=== PATIENT | female | born 1980 | race Caucasian/White ===

== ENCOUNTER 2016-07-12 17:55 | Observation (INO) | payer OTHER ==
[2016-07-12] MEDS ORDERED: SODIUM CHLORIDE 0.9% FLUSH 10 ML ONE ×2 (18:06→18:24)
[2016-07-12] MEDS ORDERED: IV START KIT ONE (18:07)
[2016-07-12] MEDS ORDERED: BLOOD Y PLUMSET W/CASSETTE ONE (18:20)
[2016-07-12] MEDS ORDERED: SODIUM CHLORIDE 0.9% 500 ML ONE (18:20)
[2016-07-12] MEDS ORDERED: SODIUM CHLORIDE 0.9% 500 ML IV PRN ×2 (19:09→20:09)
[2016-07-12 19:34] LABS: ABSOLUTE NEUTROPHIL COUNT 3.5 K/mm3 (1.8-7.7); BASO # 0.1 K/mm3 (0.0-0.2); BASO % 0.6 % (0.2-1.0); EOS # 0.5 (0.0-0.5); EOS % 6.5 % (0.9-2.9); HEMATOCRIT 24.1 % (37.0-47.0); HEMOGLOBIN 7.6 gm/l (12.0-16.0); IMM NEUT% 0.3 % (0-1); LYMPH # 3.1 (1.0-4.8); LYMPH % 40.6 % (15-45); MEAN CELL VOLUME 103.9 fl (81.0-99.0); MEAN CORPUSCULAR HEMOGLOBIN 32.8 pg (27.0-31.0); MEAN CORPUSCULAR HGB CONC 31.5 g/dl (33.0-37.0); MEAN PLATELET VOLUME 8.4 fl (7.4-10.4); MONO # 0.5 (0.0-0.8); MONO % 6.1 % (4-12); NEUT % 45.9 % (43-75); PLATELET COUNT 350 K/mm3 (130-400); RED CELL DISTRIBUTION WIDTH 18.1 % (11.5-14.5)
[2016-07-12 19:57] LABS: ALB/GLOB RATIO 1.8 (>1.0); ALBUMIN 3.7 gm/dL (3.5-5.7); CALCIUM 8.9 mg/dL (8.6-10.3)
[2016-07-12] MEDS ORDERED: BISACODYL 5 MG TABLET.EC PO PRN (20:09)
[2016-07-12] MEDS ORDERED: SODIUM CHLORIDE 0.9% 100 ML IV PRN (20:09)
[2016-07-12] MEDS ORDERED: BLISTEX LIPSTICK 1 EACH TP PRN (20:09)
[2016-07-12] MEDS ORDERED: ACETAMINOPHEN 325 MG TABLET PO PRN (20:09)
[2016-07-12] MEDS ORDERED: MAGNESIUM HYDROXIDE 30 ML UDCUP PO PRN (20:09)
[2016-07-12] MEDS ORDERED: MENTHOL/CETYLPYRD 1 EACH LOZENGE PO PRN (20:09)
[2016-07-12] MEDS ORDERED: BISACODYL 10 MG SUP PR PRN (20:09)
[2016-07-12] MEDS ORDERED: ALBUTEROL SULFATE MDI 60 PUFFS/INHALER IH PRN (20:13)
[2016-07-12 20:15] LABS: PLATELET ESTIMATE NORMAL (NORMAL)
[2016-07-12] MEDS ORDERED: FOLIC ACID 1 MG TABLET PO ONE (20:23)
[2016-07-12] MEDS ORDERED: CYANOCOBALAMIN 1,000 MCG/ML VIAL IM ONE (20:23)
[2016-07-12] MEDS ORDERED: NICOTINE 14 MG PATCH 1 EACH TD SCH (20:30)
[2016-07-12 20:34] VITALS: BMI 23.9
[2016-07-12] MEDS: SODIUM CHLORIDE 0.9% 1,000 ML IV SCH (21:36)
[2016-07-12] MEDS: MEDROXYPROGESTERONE ACET 5 MG TABLET PO SCH (21:36)
[2016-07-12] MEDS: FERROUS SULFATE (65 Fe) 325 MG TABLET PO SCH (21:37)
[2016-07-12] MEDS: DOCUSATE SODIUM 100 MG CAPSULE PO SCH (21:37)
[2016-07-12] MEDS: FLU VACC 2016-17 (36MO-64Y)/PF 60 MCG/0.5 ML SYRINGE IM V ONE (22:15)
[2016-07-13] MEDS ORDERED: BLOOD Y PLUMSET W/CASSETTE ONE (01:09)
[2016-07-13] MEDS ORDERED: SODIUM CHLORIDE 0.9% 500 ML ONE (01:09)
--- NOTE | 2016-07-13 01:32 | HP ---
SANG HAYWARD [id number] IDENTIFYING DATA: A 35-year-old female. DATE OF : 1980 CHIEF COMPLAINT: Dizziness. HISTORY OF PRESENT ILLNESS: The patient is a 35-year-old female who developed vaginal bleeding following several positive tests. She was previously seen at [facility], without treatment. She has had vaginal bleeding for approximately the past 38 days, with blood clots and cramping. She has seen her primary care physician and gynecology regarding this. She goes through approximately 20-30 pads a day with this. Gynecology has seen her and they have tried medications to help reduce and stop the bleeding. The bleeding has been reduced, but it always returns. She believes she miscarried when the test went negative after the initiation of the bleeding. In April she had a tubal ligation reversal and has been trying to get . She presented to her family practice physician who noticed the low hemoglobin and sent her to the hospital for a transfusion. Currently she has increasing dizziness for the past four or five days and she has noticed shortness of breath with activity, and there is cramping with the vaginal bleeding. She does believe she has a D&C scheduled for 07/21/2016. REVIEW OF SYSTEMS: General - chills. HEENT - no throat pain or congestion. Cardiovascular - no chest pain or pressure. Respiratory - shortness of breath with activity. GI - no nausea or vomiting. She has abdominal cramping. - no difficulties with urination. Vaginal bleeding with clots. Musculoskeletal - no muscle aches or pains. Neurologic - she has dizziness and lightheadedness. No numbness or tingling. PAST MEDICAL HISTORY: Includes: 1. Asthma. 2. Nicotine use. MEDICATIONS: Include: 1. Iron. 2. Albuterol. 3. A new prescription for Provera, provided today. ALLERGIES: 1. Doxycycline; it causes anaphylactic shock. 2. Codeine gives her numbness. PAST SURGICAL HISTORY: Includes: 1. Tonsillectomy. 2. Carpal tunnel. 3. Caesarian section with tubal ligation following a tubal reversal. FAMILY MEDICAL HISTORY: Includes diabetes and heart disease. SOCIAL HISTORY: She is and lives with her . 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 She does smoke. She denies alcohol, marijuana, heroin or other cocaine use. PHYSICAL EXAMINATION: VITALS: T=98.2, HR 90, BP 91/56, RR 16, O2 Sats 100% RA GENERAL: She is alert and oriented, not in acute distress. HEENT: Normocephalic, atraumatic. No tenderness to palpation. Her mucous membranes are moist. Her pupils are equal, round and reactive. Extraocular muscles are intact. There is no scleral icterus, conjunctival injection or pallor. NECK: Supple. Trachea midline. CARDIOVASCULAR: Regular. Positive S1, S2. She has palpable pulses bilaterally radially and PT. RESPIRATORY: Clear to auscultation bilaterally. No rhonchi or wheezing. ABDOMEN: Soft and nontender. No distention, rebound or guarding. MUSCULOSKELETAL: Moving all extremities without difficulty and nontender. NEUROLOGIC: She is alert and oriented. LABORATORY STUDIES: She has a sodium of 139, potassium 2.7, chloride 106, carbon dioxide of 3, BUN of 6, creatinine of 0.7, ALT of 11 and AST of 6. White blood count 7.7, hemoglobin 7.6 and hematocrit 24.1, with a platelet count of 350 and an MCV of 103.9. ASSESSMENT/PLAN: This is a 35-year-old female with ongoing menometrorrhagia resulting in acute blood loss anemia, sent to the hospital for admission for a blood transfusion. 1. Acute blood loss anemia secondary to menometrorrhagia following miscarriage. The patient will need surgical intervention and she is working with gynecology. Will continue Provera. She is typed and crossed for two units and will monitor the blood transfusion. 2. Menometrorrhagia. Will continue her Provera. She is to follow-up with gynecology. 3. Asthma. Will continue her inhaler. A short discussion on tobacco cessation and the impact on her asthma. 4. Tobacco dependence. She will try a nicotine patch. cc: Dr. Miguel Cordero
[2016-07-13] MEDS: SODIUM CHLORIDE 0.9% 1,000 ML IV SCH (05:10)
[2016-07-13 05:50] LABS: HEMATOCRIT 30.1 % (37.0-47.0); HEMOGLOBIN 9.5 gm/l (12.0-16.0)
[2016-07-13 07:50] VITALS: BP 97/65
--- NOTE | 2016-07-13 08:59 | PDOC5 ---
ADMIT DATE: DISCHARGE DATE: 07/13/16 ADMISSION DIAGNOSES: Acute blood loss Anemia Discharge Diagnoses: Acute blood loss anemia Menometrorrhagia Mild intermittent asthma Tobacco dependence/abuse PROCEDURES PERFORMED THIS HOSPITALIZATION: None CONSULTATIONS: None HOSPITAL COURSE: This is a 35 year old female with acute blood loss anemia 2nd to vaginal bleeding for the past 38 days, per patient report. She has been followed by her PCP and sent the patient to the hospital for admission overnight for blood transfusion as [facility] was unable to accommodate the transfusion. She is followed by gynecology and has received Provera to help with the bleeding without improvement in her symptoms. She is scheduled for D& C July 21. She presented to the hospital and was found to have a hemoglobin of 7.6. She received 2 UPRBC with a rebound in her hemoglobin to 9.5. Her symptoms of shortness of breath and dizziness resolved. With her asthma and smoking history, short discussion on the importance of smoking cessation occurred. She is interested in smoking cessation and is being provided with 15 nicotine patches. She is to follow-up with her PCP for ongoing counseling and treatment. - Exam Vital Signs Temperature 98.2 F 07/13/16 07:49 Pulse Rate 87 07/13/16 07:49 Respiratory Rate 16 07/13/16 07:49 Blood Pressure 97/65 07/13/16 07:49 O2 Saturation by Pulse Oximetry 97 07/13/16 07:49 Oxygen Delivery Method Room Air Oxygen Flow Rate 0 General: Alert, Oriented x3, Cooperative, No Acute Distress HEENT: Atraumatic, PERRLA, EOMI, Mucous membr. moist/pink, Other (no conjunctival pallor) Lungs: Clear to Auscultation Bilaterally, Normal Air Movement, Other (slight expiratory wheeze) Cardiovascular: Regular Rate and Rhythm, Normal S1, Normal S2 Abdomen: Soft, Non-Distended, No Rigid, No Tenderness, No Rebounding Extremities: No Cyanosis, No Edema, No Tenderness Peripheral Pulses: Radial (L): 2+, Radial (R): 2+, Posterior Tibialis (L): 2+, Posterior Tibialis (R): 2+ Neurological: Normal Speech Psych/Mental Status: Normal Mood - Results Laboratory 07/13/16 05:15 07/12/16 19:20 07/12/16 19:20 RBC 2.32 L MCV 103.9 H MCH 32.8 H MCHC 31.5 L RDW 18.1 H Anion Gap 7 L BUN 6 L AST 11 L ALT 6 L Total Protein 5.8 L Globulin 2.1 L Crossmatch See Detail - Problems:Assessment/Plan (1) Anemia, blood loss Status: AcuteAssessment/Plan: 2nd to menometrorrhagia. Bleeding has stopped. Received 2 UPRBC with resolution of shortness of breath and dizziness. Hgb from 7.6 to 9.5 (2) Menometrorrhagia Status: AcuteAssessment/Plan: Patient with bleeding for 38 antonio with cramping and blood clot passage. Hgb 7.6 on presentation. Received 2UPRBC. Bleeding stopped after dose of provera (3) Asthma Qualifiers: Asthma severity: mild intermittent Status: AcuteAssessment/Plan: albuterol as needed (4) Tobacco abuse Status: AcuteAssessment/Plan: nicotine patch during hospitalization. Interested in smoking cessation and will DC with patches to F/U with PCP - Discharge Plan Additional Instructions: Continue Provera. Follow-up with Dr. Chamorro for help with smoking cessation Prescriptions: Nicotine 14 mg Patch [NICODERM CQ 14 MG PATCH (SHF)] 1 each TD Q24H #15 patch Condition: Stable Disposition: Home
[2016-07-13] MEDS: DOCUSATE SODIUM 100 MG CAPSULE PO SCH (09:19)
[2016-07-13] MEDS: FERROUS SULFATE (65 Fe) 325 MG TABLET PO SCH (09:19)
[2016-07-13] MEDS: MEDROXYPROGESTERONE ACET 5 MG TABLET PO SCH (10:21)
[2016-07-13] MEDS: FLU VACC 2016-17 (36MO-64Y)/PF 60 MCG/0.5 ML SYRINGE IM V ONE (10:27)
--- NOTE | 2016-07-13 12:56 | HP ---
Katya Land : 1980 CHIEF COMPLAINT: Dizziness. HISTORY OF PRESENT ILLNESS: The patient is a 35-year-old female who developed vaginal bleeding following several positive tests. She was previously seen at [facility] and without treatment she has had vaginal bleeding for approximately the past 38 days with blood clots and cramping. She has seen her primary care physician and gynecology regarding this. She goes through approximately 20 to 30 pads a day with this. Gynecology has seen her and they have tried medications to help reduce and stop the bleeding and the bleeding has been reduced, but it always returns. She believes she miscarried when the test went negative after the initiation of the bleeding. In April she had a tubal ligation reversal and has been trying to get . She presented to her family practice physician who noticed a low hemoglobin and sent her to the hospital for transfusion. Currently she has increasing dizziness for the past 4 or 5 days and she has noticed shortness of breath with activity and there is cramping with the vaginal bleeding. She does believe she has a dilation and curettage scheduled for July 21. REVIEW OF SYSTEMS: General: Chills. ENT: No throat pain or congestion. Cardiovascular: No chest pain or pressure. Respiratory: Shortness of breath with activity. GI: No nausea, vomiting. She has abdominal cramping. : No difficulties with urination. Vaginal bleeding with clots. Musculoskeletal: No muscles aches or pains. Neurologic: She has dizziness and lightheadedness. No numbness, tingling. PAST MEDICAL HISTORY: Includes asthma and nicotine use. MEDICATIONS: Include: 1. Iron. 2. Albuterol. 3. New prescription for Provera provided today. ALLERGIES: TO DOXYCYCLINE, IT CAUSES ANAPHYLACTIC SHOCK. CODEINE GIVES HER NUMBNESS. PAST SURGICAL HISTORY: Includes a tonsillectomy, carpal tunnel, section with tubal ligation following a tubal reversal. FAMILY MEDICAL HISTORY: Includes diabetes, heart disease. SOCIAL HISTORY: She is and lives with her . 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 She does smoke. She denies alcohol, marijuana, heroin or cocaine use. PHYSICAL EXAMINATION: GENERAL: She is alert and oriented not in acute distress. HEENT: Normocephalic, atraumatic. No tenderness to palpation. Mucous membranes are moist. Pupils are equal, round, and reactive. Extraocular muscles intact. No scleral icterus, conjunctival injection, or pallor. NECK: Supple. Trachea midline. CARDIOVASCULAR: Regular with positive S1, S2. She had palpable pulses bilaterally, radially and PT. RESPIRATORY: Clear to auscultation bilaterally. No rhonchi or wheezing. ABDOMEN: Soft, nontender, nondistended. No rebound, no guarding. MUSCULOSKELETAL: Moving all extremities without difficulty and are nontender. NEUROLOGIC: She is alert and oriented. LABORATORY STUDIES: She has a sodium of 139, potassium 2.7, chloride 106, carbon dioxide 30, BUN 6, creatinine 0.7, ALT 11, AST 6. White blood count 7.7, hemoglobin 7.6, hematocrit 24.1 with a platelet count of 350. MCV of 103.9. ASSESSMENT AND PLAN: This is a 35-year-old female with ongoing menometrorrhagia resulting in acute blood loss anemia and sent to the hospital for admission for blood transfusion. 1. Acute blood loss anemia secondary to menometrorrhagia following miscarriage. Patient will need surgical intervention and she is working with gynecology. We will continue Provera. She is typed and crossed for 2 units and will monitor the blood transfusion. 2. Menometrorrhagia. Will continue her Provera. She is to follow up with gynecology. 3. Asthma. Will continue her inhalers. Short discussion on tobacco cessation and the impacts on her asthma. 4. Tobacco dependence. She will try nicotine patch. JOB: [id number] CC: Dr. Chamorro
== END 2016-07-13 13:05 | disposition home or self-care (01) ==
LOC: ICU 17:55 → STEPS 17:55 → ICU 18:55 → UNDOFXREFRRACCOM 21:11 → ICU 21:14 → MS 21:14 → UNDOFXREFACCOM 21:14 → MS 21:14 → UNDOFXREFRRACCOM 22:37 → UNDOFXREFACCOM 22:37 → STEPS 07-13 13:05 → MS 07-13 13:05 → EDSTATUS 07-28 17:14
PROVIDERS: ADMIT Family Medicine; ATTEND Family Medicine
PROC: 30233N1 Transfusion of Nonautologous Red Blood Cells into Peripheral Vein, Percutaneous Approach (ICD-10-PCS; principal; 2016-07-12)
DX: D62 Acute posthemorrhagic anemia (principal); J45.909 Unspecified asthma, uncomplicated; F17.210 Nicotine dependence, cigarettes, uncomplicated; Z23 Encounter for immunization; D50.9 Iron deficiency anemia, unspecified
CPT/HCPCS: 36455; 90682 ×2; 84702; 85025 ×2; 80053; 85014; 85018; 82607; 36415; 86920; 86922; 86921; 86901; 86850 ×3; 36430; A9270 ×4; J3420; J7040 ×2; J7030; P9016 ×2

== ENCOUNTER 2016-07-21 09:36 | Day surgery (SDC) | payer OTHER ==
--- NOTE | 2016-07-20 11:43 | HP ---
Katya Land : 1980 HISTOR OF PRESENT ILLNESS: This is a 35-year-old female who has had heavy menses beginning at the end of January with associated anemia. She has also had blood transfusion to correct the anemia. She is admitted for a dilation and curettage and hysteroscopy. Risks, reasons, complications, living will, alternatives discussed, failure of surgery to relieve symptoms discussed all in laypersons terms and all questions answered. OB HISTORY: She is a 3, para 2-0-2-2, two vaginal deliveries and one section with a history of still born twins at 7 months. SUPPORT ASSOCIATE HISTORY: Menarche 8 x28 x7 to 10 days. She does have a septate uterus. She has had a tubal ligation and reversal and abnormal pap in 2009. Sexually transmitted diseases are negative. PAST MEDICAL HISTORY: Dyslexia, asthma. MEDICTIONS: Includes an albuterol inhaler. ALLERGIES: DOXYCYCLINE AND CODEINE. PAST SURGICAL HISTORY: Tubal ligation, a tubal reversal, tonsillectomy, carpal tunnel surgery bilaterally, and section, and a dilation and curettage. SOCIAL HISTORY: She is a smoker, but does not use drugs and alcohol. FAMILY HISTORY: Positive for breast cancer and heart disease with her mother. REVIEW OF SYSTEMS: Noncontributory with the exception of the above history. PHYSICAL EXAMINATION: GENERAL: Is a thin female in no acute distress. HEENT: Normal. NECK: Supple. Thyroid not palpable. BREAST: Soft, no masses. HEART: Regular sinus rhythm, no murmurs. LUNGS: Clear. ABDOMEN: Benign. Pfannenstiel incision present. BREAST: Palpable, soft, no masses. HEART: Regular sinus rhythm, no murmurs. LUNGS: Clear. PELVIC: External genitalia healthy. Vagina healthy. Cervix pink and nontender. Uterus normal size and anteverted. Nontender. Adnexa were negative. DIAGNOSTICS: Her endometrial biopsy from June 2016 was benign endometrium. Her pap smear from February 15 was negative. LABORATORY: Her last hemoglobin on 07/19 was 10.3. IMPRESSION: 1. Anemia. 2. Septate uterus. 3. Abnormal uterine bleeding. PLAN: Dilation and curettage, and hysteroscopy. JOB: [id number]
[~2016-07-21 09:36] MED LIST: IV START KIT ONE; LACTATED RINGERS 1,000 ML ONE
[2016-07-21] MEDS ORDERED: LIDOCAINE 1% 2 ML VIAL ID PRN ×2 (09:45→11:01)
[2016-07-21] MEDS ORDERED: LACTATED RINGERS 1,000 ML IV SCH ×3 (09:45→11:30)
[2016-07-21] MEDS ORDERED: PROPOFOL 20 ML IV ONE ×2 (10:19)
[2016-07-21] MEDS ORDERED: FENTANYL 100 MCG/2 ML VIAL ONE (10:21)
[2016-07-21] MEDS ORDERED: LIDOCAINE 2% (MULTI DOSE) 10 ML VIAL ONE (10:21)
[2016-07-21] MEDS ORDERED: MIDAZOLAM HCL 1 MG/ML 2ML VIAL ONE (10:22)
[2016-07-21] MEDS ORDERED: NALOXONE HCL 0.4 MG/ML VIAL IV PRN (11:21)
[2016-07-21] MEDS ORDERED: PROMETHAZINE HCL 25 MG/ML VIAL IM PRN (11:21)
[2016-07-21] MEDS ORDERED: FENTANYL 100 MCG/2 ML VIAL IV PRN (11:21)
[2016-07-21] MEDS ORDERED: ATROPINE SULFATE 0.4 MG/1 ML VIAL IV PRN (11:21)
[2016-07-21] MEDS ORDERED: HYDROMORPHONE HCL 1 MG/ML SYRINGE IV PRN (11:21)
[2016-07-21] MEDS ORDERED: ONDANSETRON 4 MG/2ML 2 ML VIAL IV PRN (11:21)
[2016-07-21] MEDS ORDERED: MEPERIDINE 25 MG/ML SYRINGE IV PRN (11:21)
[2016-07-21] MEDS ORDERED: DEXAMETHASONE SOD PHOS 4 MG/1 ML VIAL ONE (11:22)
--- NOTE | 2016-07-21 11:48 | PCMBPN ---
Brief Post Op Note: Date of Procedure: 07/21/16 Start Time: Preoperative Diagnosis: 1. anemia, abnormal uterine bleeding, bicornuate uterus Postoperative Diagnosis: 1. Same Procedure: dilation and curettage, hysteroscopy Surgeon: Maxime Wheeler Assist: Anesthesia: general, ms chantelle Findings: external genitalia healthy, cervix patulous, uterus normal size anteverted, adnexa negative, sounded to 7 cm, scanty curettings, hysteroscopy: bicornuate uterus Condition: stable Complications: none IV Fluids: mLs of LR Urine Output: 200 mLs Estimated Blood Loss: 5 mLs Tourniquet Time: N/A Specimens: endocervical and endometrial curettings Implants: Drains: N/A patient tolerated procedure well and was returned to recovery room in stable condition.
[2016-07-21] MEDS ORDERED: OXYCODONE/ACETAMINOPHEN 5/325 MG TABLET PO PRN (11:49)
[2016-07-21] MEDS ORDERED: IBUPROFEN 800 MG TABLET PO PRN (11:49)
--- NOTE | 2016-07-21 12:28 | OP ---
Katya Land : 1980 NAME OF OPERATION: Dilation and curettage and hysteroscopy. PREOPERATIVE DIAGNOSES: Anemia secondary to abnormal uterine bleeding and a bicornuate uterus. POSTOPERATIVE DIAGNOSES: Anemia secondary to abnormal uterine bleeding and a bicornuate uterus. FOREIGN STUDENT ADVISER: Dr. Maxime Colby ANESTHESIA: General, Ms. Holt. DESCRIPTION OF PROCEDURE: Dictation begins with patient under general anesthesia. She was placed in the lithotomy position. The vagina was prepared with Betadine and draped in the usual manner. After a timeout was performed, exam under anesthesia revealed the external genitalia healthy, the vagina was healthy, the cervix was pink and patulous, the uterus normal size and anteverted, adnexa negative. A duckbill speculum was inserted into the vagina gently. The anterior lip of the cervix was grasped with a single prong tenaculum. Curettage from the endocervical canal produced scanty amounts of mucous and blood. Next, the uterus was sounded to 7 cm. The cervix gradually dilated with Ashish dilaters and then curettage from the endometrial cavity including directing the curette to both uterine horns produced scanty curettings approximately 3 mL. Lastly, the hysteroscopic exam was performed using normal saline. Hysteroscopy showed a bicornuate uterus and photographs of this were taken. At this point, the hysteroscopic exam was ended and the hysteroscope removed. The single prong tenaculum was removed. Hysteroscopy fluid deficit : 50cc. The cervix was cauterized where the tenaculum had punctured the cervix with Silver nitrate was used and there was complete hemostasis and then the operation was terminated. The vaginal instruments were removed. There was complete hemostasis. Sponge and instrument count reported as correct. Estimated blood loss was 5 mL. Urine output was 200 mL prior to the surgery and that was performed by straight catheterization. Specimens include endocervical and endometrial curettings. She tolerated procedure well and returned to recovery room in stable condition. FINAL DIAGNOSIS: As above and pathology pending. JOB: [id number]
--- NOTE | 2016-07-21 12:31 | DS ---
[facility] COURSE: Katya Land is a 35-year-old female admitted with history of abnormal uterine bleeding and anemia which did require blood transfusions. She also had a bicornuate uterus. She underwent a dilation and curettage and hysteroscopy and tolerated the procedure well and sent home in good condition. Advised office visit in one weeks time. Activities were explained to the patient prior to going to sleep. She was sent home on Percocet and ibuprofen. Pathology is pending at the time of this dictation. Her lab values were positive for anemia 10.6 hemoglobin. JOB: [id number]
[2016-07-21] MEDS ORDERED: IBUPROFEN 800 MG TABLET ONE (13:09)
[2016-07-21] MEDS ORDERED: OXYCODONE/ACETAMINOPHEN 5/325 MG TABLET ONE (13:09)
--- NOTE | 2016-07-26 13:45 | SURGPATH ---
[facility] [address] [place] [id number] Patient Name: SANG HAYWARD MR#: [id number] : 1980 Gender: F Specimen #: [id number] Collected: 07/21/2016 Received: 07/25/2016 Reported: 07/26/2016 Submitting Phys: ULYSSES BERGERON I Copy To Phys: [facility] Clinical History / Pre-Operative Diagnosis: Abnormal uterine bleeding Specimen Source / Surgical Procedure Performed: #1 endocervical curettings, #2 endometrial curettings Interpretation: 1. ENDOCERVIX, CURETTAGE: - FEATURES SUGGESTING BENIGN LOWER UTERINE SEGMENT POLYP - SCANT FRAGMENTS OF UNREMARKABLE ENDOCERVIX 2. ENDOMETRIUM, CURETTING: - WEAKLY PROLIFERATIVE ENDOMETRIUM WITH BREAKDOWN - NEGATIVE FOR HYPERPLASIA, ATYPIA, OR MALIGNANCY Electronically Signed Out Edy Givens M.D. Gross Description: 1. The specimen is received in formalin labeled with the patient's name and "endocervical". The specimen consists of a 1.0 x 0.5 x 0.1 cm aggregate of brown soft tissue or blood. Submitted in toto in one cassette. 2. The specimen is received in formalin labeled with the patient's name and "endometrial curetting". The specimen consists of a 2.0 x 2.0 x 0.6 cm aggregate of red-brown clotted blood or soft tissue. Submitted in toto in one cassette. HAKEEM Brantley Microscopic Description: Microscopic performed. 1: [id number] 2: 39718 N93.8
== END 2016-07-21 15:17 | disposition home or self-care (01) ==
LOC: SDC 09:36
PROVIDERS: ATTEND Obstetrics & Gynecology
PROC: 0UDB8ZX Extraction of Endometrium, Via Natural or Artificial Opening Endoscopic, Diagnostic (ICD-10-PCS; principal; 2016-07-21)
DX: N93.9 Abnormal uterine and vaginal bleeding, unspecified (principal); D50.9 Iron deficiency anemia, unspecified; Q51.3 Bicornate uterus; J45.909 Unspecified asthma, uncomplicated; R48.0 Dyslexia and alexia; Z88.5 Allergy status to narcotic agent; Z88.1 Allergy status to other antibiotic agents; Z72.0 Tobacco use; Z80.3 Family history of malignant neoplasm of breast
CPT/HCPCS: 58558; J3010; J1100; A9270 ×3; J2250; J2405; J7120 ×2; J2001